=== PATIENT | female | born 1955 | race Two or more races ===

== ENCOUNTER 2023-01-19 12:47 | Emergency (ER) | payer OTHER, MEDICAID ==
[~2023-01-19] VITALS: Ht 160 cm; Wt 70.0 kg
[2023-01-19] MEDS ORDERED: SODIUM CHLORIDE 0.9% 500 ML IV ONE (13:30)
[2023-01-19 14:01] VITALS: PULSE 81; RESP 20; O2SAT 97
[2023-01-19 14:07] LABS: Basophils # (auto) 0 10 ^3/uL (0-0.2); Basophils % (auto) 0.3 % (0.0-2.0); Eosinophils # (auto) 0.1 10 ^3/uL (0-0.8); Eosinophils % (auto) 0.5 % (0.0-7.0); Hematocrit 43.7 % (36.0-46.0); Hemoglobin 14.4 g/dL (12.2-16.2); Lymphocytes # (auto) 0.4 10 ^3/uL (0.4-5.4); Lymphocytes % (auto) 2.7 % (10.0-50.0); Mean Corpuscular Hemoglobin 29.8 pg (28.0-32.0); Mean Corpuscular Volume 90.5 fL (80.0-100.0); Monocytes % (auto) 6.3 % (0.0-12.0); Neutrophils # (auto) 14.3 10 ^3/uL (1.6-8.6); Neutrophils % (auto) 90.2 % (37.0-80.0); Red Blood Cells 4.83 10^6/uL (4.0-5.20); White Blood Cell 15.9 10^3/uL (4.4-10.8)
[2023-01-19 14:14] LABS: Albumin 3.7 g/dL (3.4-5.0); Calcium 9.1 mg/dL (8.5-10.1); INR 1.04 (0.9-1.15); Partial Thromboplastin Time 24.5 SEC (24.5-34.5); Potassium 4.7 mmol/L (3.5-5.1); Prothrombin Time 10.9 sec (9.3-11.8)
[2023-01-19 14:17] LABS: BUN/Creatinine Ratio 19.1 (10.0-20.0); Bilirubin, Total 0.5 mg/dL (0.2-1.0); Total Protein 6.4 g/dL (6.4-8.2)
[2023-01-19] MEDS ORDERED: PIPERACILLIN-TAZOB 3.375GM 100 ML IV ONE (14:45)
[2023-01-19 14:56] VITALS: BP 127/54; RESP 16; TEMP 98; O2SAT 95
[2023-01-19 16:05] LABS: Urine Bacteria FEW /hpf (None Seen); Urine Blood Negative /uL (Negative); Urine Clarity Clear (Clear); Urine Color Colorless (Yellow); Urine Mucus FEW (None Seen); Urine Protein, UAD Negative (Negative); Urine Specific Gravity 1.034 (1.001-1.035); Urine Urobilinogen Normal (Negative); Urine WBC 8 /hpf (0 - 5); Urine pH 5.5 (5.0-8.0)
[2023-01-19] MEDS ORDERED: CEPH500T PO (16:14)
[2023-01-19] MEDS ORDERED: PHEN95TA10 PO (16:14)
[2023-01-19] MEDS ORDERED: FAMO20TA10 PO (16:14)
[2023-01-19 16:19] VITALS: PULSE 79
== END 2023-01-19 17:51 | disposition home or self-care (01) ==
LOC: EDBD 12:47 → ER 12:47
DX: N39.0 Urinary tract infection, site not specified (principal); I10 Essential (primary) hypertension; E11.9 Type 2 diabetes mellitus without complications; Z79.899 Other long term (current) drug therapy
CPT/HCPCS: 36415; 74177; 76775; 80053; 81001; 83605; 83690; 84484; 85025; 85610; 85730; 87040; 93005; 96361; 96365; 99285; J2543; J7040; Q9967